=== PATIENT | female | born 1970 | race Two or more races ===

== ENCOUNTER 2019-06-23 18:08 | Emergency (ER) | payer OTHER ==
[~2019-06-23] VITALS: Ht 154.9 cm; Wt 68.9 kg
[2019-06-23 18:28] VITALS: BP 152/78
== END 2019-06-23 20:58 | disposition home or self-care (01) ==
LOC: ER 18:08
DX: J18.9 Pneumonia, unspecified organism (principal)

== ENCOUNTER 2019-07-19 15:38 | Inpatient (IN) | payer OTHER ==
[~2019-07-19] VITALS: Ht 154.9 cm; Wt 71.0 kg
--- NOTE | 2019-07-19 16:15 | NUR ---
PT R EC'D TO ER VIA EMS C/O SOB WAS SEEN IN THE ER 6 DAYS AGO FOR THESAME THING . SATS 100% RA RESP EVEN UNLABORED IV STARTED 22 LEFT WRIST LABS DRAWN SENT TO LAB AWAITING EVALUATION BY ER PROVIDER.
[2019-07-19 16:54] LABS: BASOPHILS # (AUTO) 0.1 /CMM (0.0-0.2); EOSINOPHILS % (AUTO) 1.9 % (0.0-6.0); HEMATOCRIT 24 % (33-45); HEMOGLOBIN 8.3 g/dL (11.5-14.8); MEAN CORPUSCULAR HGB CONC 34 g/dl (31.0-36.0); MEAN CORPUSCULAR VOLUME 87 fL (82-100); MONOCYTES % (AUTO) 7.2 % (2.0-12.0); NEUTROPHILS % (AUTO) 74.9 % (43.0-81.0); PLATELET COUNT (AUTO) 293 /CMM (150-450); RED BLOOD CELL COUNT(AUTO) 2.78 MIL/uL (4.0-5.2); WHITE BLOOD COUNT (AUTO) 13.3 K/uL (4.3-11.0)
--- NOTE | 2019-07-19 16:54 | NUR ---
PRT AMB TO BR VOIDED BACK TO BED MONTIORS APPLIED
--- NOTE | 2019-07-19 17:04 | NUR ---
PT TALKING ON THE PHONE VSSS
[2019-07-19 17:09] LABS: CALCIUM, SERUM 9.2 mg/dL (8.5-10.1); CARBON DIOXIDE 26 mmol/L (21-32); CHLORIDE 98 mmol/L (98-107); CREATININE 0.8 mg/dL (0.6-1.3); GLUCOSE 151 mg/dL (74-106); POTASSIUM 4.4 mmol/L (3.5-5.1); SODIUM SERUM 135 mmol/L (136-145); UREA NITROGEN, BLOOD 12 mg/dL (7-18)
--- NOTE | 2019-07-19 17:19 | NUR ---
EKG SHOWING A FLUTTER CONT TO MONITOR
[2019-07-19 17:22] LABS: B-TYPE NATRIURETIC PEPTIDE 236 PG/ML (0-125)
[2019-07-19] MEDS ORDERED: MULT-447 PO (17:23)
[2019-07-19] MEDS ORDERED: ALBU18HF2 IH (17:23)
[2019-07-19] MEDS ORDERED: ASCO500T9 PO (17:23)
[2019-07-19] MEDS ORDERED: PIPERACILLIN /TAZOBACTAM 3.375 G in IV D5W 50 ML IV ONE (18:00)
--- NOTE | 2019-07-19 18:29 | NUR ---
CALLED [facility] FOR COVID PRESENTATION. SOMEONE WILL CALL BACK WITHIN 1 HOUR.
--- NOTE | 2019-07-19 18:51 | NUR ---
pt given dinner tray pending zosyn from pharm waiting for a tech
[2019-07-19] MEDS ORDERED: DILTIAZEM HCL 25 MG IV IV ONE ×2 (19:00→22:30)
[2019-07-19] MEDS ORDERED: DILTIAZEM HCL 25 MG IV ONE (19:09)
--- NOTE | 2019-07-19 20:00 | NUR ---
end time for zosyn: 2030
[2019-07-19] MEDS ORDERED: Z GUARD REMEDY 2 OZ OINT TP PRN (20:30)
[2019-07-19] MEDS ORDERED: ACETAMINOPHEN 325 MG TABLET PO PRN (20:30)
[2019-07-19] MEDS ORDERED: MAGNESIUM HYDROXIDE 30 ML UDC PO PRN (20:30)
[2019-07-19] MEDS ORDERED: MAG HYDROX/AL HYDROX/SIMETH 30 ML UDC PO PRN (20:30)
[2019-07-19] MEDS ORDERED: ONDANSETRON HCL/PF 4 MG/2 ML VIAL IVP PRN (20:30)
--- NOTE | 2019-07-19 20:53 | NUR ---
REPORT GIVEN TO KOLE
--- NOTE | 2019-07-19 21:10 | NUR ---
pt was transferred to the floor under ACLS
[2019-07-19 21:15] VITALS: BP 124/72
--- NOTE | 2019-07-19 21:15 | NUR ---
TELE/RN NEW ADMISSION NOTES RECEIVED PATIENT IS A 48 YO FINNISH SPEAKING FEMALE, AMBULATORY, CONTINENT, AND ALERT, ORIENTED X3, ABLE TO VERBALIZE NEEDS, REPORTED SOB , SKIN WARM TO TOUCH, ON 2 LITER VIA NC SATURATING AT 95 %. DENIES PAIN. LUNGS SOUNDS ARE DIMINISHED WITH DX OF COMMUNITY ACQUIRED PNA, MULTIPLE HOSPITALIZATIONS. ON CONTACT ISOLATION FOR DROPLET, TO RULE OUT LOPES VIRUS 19. DENIES PAIN. SKIN INTACT AND WITH NO OPEN WOUND. LAST BM WAS A DAY AGO.PATIENT COOPERATIVE TO CARE. BELONGINGS CHECK. REFUSE VACCINE. TO MONITOR. ROOM ORIENTATION PROVIDED, WILL MONITOR. ON CARDIAC DIET. AND ANTIBIOTIC THERAPY. HOME MEDICATIONS REPORTED.
[2019-07-19 21:32] LABS: IRON, SERUM 160 ug/dl (50-175); TOTAL IRON BINDING CAPACITY 258 ug/dl (250-450)
--- NOTE | 2019-07-20 | NUR ---
TELE/RN NOTES CARDIZEM 5MG/1ML IVP ADMINISTERED FOR PATIENT WITH ELEVATED HEART RATE AND WITH AFLUTTER. RESULT IS NOW SINUS TACHY AT 113 AND NO LONGER AFLUTTER. PATIENT WAS MADE AWARE PER MD ORDER NOT TO GO TO THE BATHROOM IT CAUSE SOB DUE TO EXERTION. TO USE EITHER BED TRAN OR BED SIDE COMMODE INSTEAD.
[2019-07-20] MEDS ORDERED: ZOSYN IVPB 3.375 G in IV D5W 50ml IV ONE (02:00)
[2019-07-20] MEDS ORDERED: PIPERACILLIN /TAZOBACTAM 3.375 G VIAL IV ONE (02:43)
[2019-07-20 04:00] VITALS: BP 96/55
[2019-07-20 04:13] LABS: BASOPHILS # (AUTO) 0.1 /CMM (0.0-0.2); BASOPHILS % (AUTO) 0.6 % (0.0-2.0); EOSINOPHILS % (AUTO) 2.3 % (0.0-6.0); HEMATOCRIT 22 % (33-45); HEMOGLOBIN 7.2 g/dL (11.5-14.8); LYMPHOCYTES # (AUTO) 2.1 /CMM (0.8-4.8); LYMPHOCYTES % (AUTO) 17.9 % (20.0-44.0); MEAN CORPUSCULAR HGB CONC 33 g/dl (31.0-36.0); MEAN CORPUSCULAR VOLUME 88 fL (82-100); MONOCYTES # (AUTO) 0.9 /CMM (0.1-1.30); MONOCYTES % (AUTO) 7.3 % (2.0-12.0); NEUTROPHILS # (AUTO) 8.5 /CMM (1.8-8.9); NEUTROPHILS % (AUTO) 71.9 % (43.0-81.0); PLATELET COUNT (AUTO) 253 /CMM (150-450); RED BLOOD CELL COUNT(AUTO) 2.46 MIL/uL (4.0-5.2); WHITE BLOOD COUNT (AUTO) 11.8 K/uL (4.3-11.0)
[2019-07-20 04:21] LABS: CALCIUM, SERUM 8.8 mg/dL (8.5-10.1); CREATININE 0.8 mg/dL (0.6-1.3); PHOSPHORUS 4.6 mg/dL (2.5-4.9); POTASSIUM 4.1 mmol/L (3.5-5.1)
[2019-07-20 04:51] VITALS: BP 96/55
[2019-07-20 04:58] LABS: THYROID STIMULATING HORMONE 2.207 uIU/mL (0.358-3.74)
--- NOTE | 2019-07-20 06:31 | NUR ---
TELE/RN CLOSING NOTES PATIENT SLEPT FEW HOURS, ALERT, ORIENTED X3. MONITORED FOR SOB. ON OXYGEN VIA NC AT 3LITER. COOPERATIVE TO CARE. ABLE TO VERBALIZED NEEDS. ATTENDED TO ALL NEEDS. BED LOCKED, CALL LIGHTS WITHIN REACH. ON TELE WITH ST AT 113.WILL EBDORSE TO AM RN FOR HODAN.
--- NOTE | 2019-07-20 07:30 | NUR ---
RN OPENING NOTE Received pt in bed. Hob elevated. Pt is obtunded. On a trach and vent. No signs of distress. GT in place and feeding running. No residual. Checked placement. No signs of pain or discomfort. Patient appears relaxed. Esquivel catheter in place draining clear ghislaine urine. Safety measures reinforced. Bed on lowest and locked position. Repositioned patient. Tolerated well. Will continue to monitor.
--- NOTE | 2019-07-20 07:30 | NUR ---
Please disregard previous note
--- NOTE | 2019-07-20 07:30 | NUR ---
RN OPENING NOTE Received pt asleep in bed. Appears comfortable and relaxed. No signs of distress. Easily awaken when greeted. Pt has a non productive cough. No signs of pain when coughing. No shortness of breath at the moment. Pt has a L wrist peripheral line in place. Flushed with saline, patent. Pt has no c/o pain or discomfort. She expressed anxiety with isolation. Informed it risk and benefits of isolation. Pt family wants to visit. Informed that visitation is not allowed in all hospitals to prevent possible exposure. Pt understood. Call light is within reach. Reinforced safety measures. Bed on locked and lowest position. All needs met. Will cont to monitor.
[2019-07-20 08:00] VITALS: BP 92/55
[2019-07-20] MEDS: PANTOPRAZOLE 40 MG TABLET.DR PO SCH (08:08)
[2019-07-20] MEDS: ASCORBIC ACID 500 MG TABLET PO SCH (08:22)
[2019-07-20] MEDS: MULTIVIT W/MINERALS 1 TAB TABLET PO SCH (08:22)
[2019-07-20] MEDS: ENOXAPARIN SODIUM 40 MG/0.4 ML DISP.SYRIN SQ SCH ×2 (08:31→14:01)
[2019-07-20 12:00] VITALS: BP 112/63
[2019-07-20] MEDS: PIPERACILLIN /TAZOBACTAM 3.375 G in IV D5W 50 ML IV SCH ×3 (12:06→23:16)
[2019-07-20] MEDS ORDERED: FUROSEMIDE 20 MG/2 ML VIAL IV ONE (13:00)
[2019-07-20] MEDS ORDERED: SOD FERRIC GLUC 125 MG in IV NS 0.9% 100 ML IV SCH (14:00)
[2019-07-20 15:02] LABS: ABG BASE EXCESS 2.1 mmol/L; ABG OXYGEN SATURATION 96.1 % (92.0-98.5); ABG PH 7.533 (7.350-7.450); ABG PO2 88.1 mmHg (75.0-100.0); COHb 2.9 % (0.5-1.5); MetHb 0.6 % (0.0-1.5); O2Hb 92.7 % (94.0-97.0); SITE, ABG Right Radial
[2019-07-20 16:00] VITALS: BP 109/56
--- NOTE | 2019-07-20 16:21 | NUR ---
PT REFUSED DUPLEX VENOUS LOWER EXT BILATERAL EXAM. ATTENDING RN SPOKE TO PT AND PT REFUSED EXAM.
--- NOTE | 2019-07-20 16:24 | NUR ---
XIOMY RN NOTE PT REFUSED DUPLEX VENOUS LOWER EXT. EXPLAINED RISK AND BENEFITS OFFERED 3X. PT IS AWARE. PROCEDURE IS CANCELLED.
--- NOTE | 2019-07-20 19:02 | NUR ---
MS RN CLOSING NOTES PATIENT IN BED, AWAKE, WATCHING TV. PATIENT ON ROOM AIR BREATHING IS EVEN AND SYMMETRICAL WITH NO SOB PRESENT AT THIS TIME. LIGHT COUGH PRESENT. NO PAIN REPOSTED. L WRIST IV ACCESS GAUGE # [address], INTACT AND PATENT. SAFETY PRECAUTIONS IN PLACE; ISOLATION PRECAUTIONS IN PLACE, BED IN LOW POSITION AND LOCKED, RAILS UP X2, CALL LIGHT WITHIN REACH. WILL ENDORSE TO NURSERY TECHNICIAN NURSE.
--- NOTE | 2019-07-20 19:55 | NUR ---
RN NOTES RECEIVED PATIENT IN BED, AWAKE, RESTLESS, EXPRESSES IRRITABILITY BECAUSE ACCORDING TO HER, SHE'S BEEN REQUESTING TO TALK TO THE DOCTOR THE ENTIRE DAY REGARDING HER MEDICAL CONDITION, BUT SHE DID NOT SEE ANY DOCTOR. PATIENT IS UPSET, ABLE TO MAINTAIN NORMAL BREATHING PATTERN, O2 SAT 100% ON 2LPM VIA EVEN AND SYMMETRICAL WITH NO SOB PRESENT AT THIS TIME. LIGHT COUGH PRESENT.DENIES ANY PAIN AT THIS TIME, L WRIST IV ACCESS GAUGE # [address], INTACT AND PATENT. SAFETY PRECAUTIONS IN PLACE; ISOLATION PRECAUTIONS IN PLACE, BED IN LOW POSITION AND LOCKED, RAILS UP X2, CALL LIGHT WITHIN REACH. ALL NEEDS ANTICIPATED AND ATTENDED, WILL CONTINUE TO MONITOR ACCORDINGLY.
--- NOTE | 2019-07-20 21:18 | NUR ---
RN NOTES PATIENT REFUSED CALIX CATHETER INSERTION.
[2019-07-20] MEDS ORDERED: ATORVASTATIN 40 MG TABLET PO SCH (22:00)
[2019-07-21] VITALS (8 sets, daily range): BP systolic 95–130; BP diastolic 54–76
[2019-07-21] MEDS: PIPERACILLIN /TAZOBACTAM 3.375 G in IV D5W 50 ML IV SCH ×3 (05:01→17:00)
--- NOTE | 2019-07-21 06:27 | NUR ---
RN NOTES ALL NEEDS ATTENDED AND MET, ABLE TO REST AND SLEPT FROM 12 MIDNIGHT UNTIL 05:30 AM, HOWEVER, PATIENT CLAIMS THAT SHE WAS UNABLE TO SLEEP WELL BECAUSE IT IS NOT HER OWN BED, AND NOT COMFORTABLE SLEEPING. PATIENT IN BED, AWAKE, RESTING COMFORTABLY NO SIGNS OF DISTRESS. PATIENT IS STILL UPSET, REASSURED PATIENT THAT WILL REPORT AND ENDORSE TO AM NURSE THAT SHE WANTS TO TALK TO THE DOCTOR TODAY IN THE MORNING, AND FROM THERE, BASE ON CONVERSATION SHE WILL DECIDE IF SHE WANTS TO GO HOME TODAY. ABLE TO MAINTAIN NORMAL BREATHING PATTERN, O2 SAT 100% ON 2LPM VIA EVEN AND SYMMETRICAL WITH NO SOB PRESENT AT THIS TIME. LIGHT COUGH PRESENT.DENIES ANY PAIN AT THIS TIME, L WRIST IV ACCESS GAUGE # [address], INTACT AND PATENT. SAFETY PRECAUTIONS IN PLACE; ISOLATION PRECAUTIONS IN PLACE, BED IN LOW POSITION AND LOCKED, RAILS UP X2, CALL LIGHT WITHIN REACH. WILL ENDORSE TO AM NURSE FOR CONTINUITY OF CARE.
[2019-07-21 06:33] LABS: BASOPHILS % (AUTO) 0.3 % (0.0-2.0); EOSINOPHILS % (AUTO) 1.8 % (0.0-6.0); LYMPHOCYTES % (AUTO) 16.2 % (20.0-44.0); MEAN CORPUSCULAR HGB CONC 34 g/dl (31.0-36.0); MEAN CORPUSCULAR VOLUME 89 fL (82-100); MONOCYTES # (AUTO) 0.9 /CMM (0.1-1.30); MONOCYTES % (AUTO) 7.6 % (2.0-12.0); NEUTROPHILS % (AUTO) 74.1 % (43.0-81.0); PLATELET COUNT (AUTO) 194 /CMM (150-450); WHITE BLOOD COUNT (AUTO) 12.2 K/uL (4.3-11.0)
[2019-07-21 06:39] LABS: RED BLOOD CELL COUNT(AUTO) 1.96 MIL/uL (4.0-5.2)
[2019-07-21 06:42] LABS: HEMATOCRIT 18 % (33-45)
--- NOTE | 2019-07-21 06:46 | NUR ---
RN NOTES RECEIVED CRITICAL LAB VALUES HEMOGLOBIN 6.0 HEMACTOCRIT 18. INFORMED FAMILY SERVICE AIDE ANITA LEE, AWAITING FOR NEW ORDERS.
[2019-07-21 07:07] LABS: ALBUMIN 2.6 g/dL (3.4-5.0); BILIRUBIN,TOTAL 2.8 mg/dL (0.2-1.0); CALCIUM, SERUM 8.7 mg/dL (8.5-10.1); CREATININE 0.8 mg/dL (0.6-1.3); MAGNESIUM 2.2 mg/dL (1.8-2.4); PHOSPHORUS 5.1 mg/dL (2.5-4.9); TOTAL PROTEIN, SERUM 6.5 g/dL (6.4-8.2)
[2019-07-21 07:21] LABS: BAND % (MANUAL) 4 % (0.0-5.0); LYMPHOCYTES % (MANUAL) 11 % (16-48); METAMYELOCYTES % 2 % (0-0); MONOCYTES % (MANUAL) 10 % (0-11.0); MYELOCYTES % 1 % (0-0); NEUTROPHILS % (MANUAL) 72 (42-76)
--- NOTE | 2019-07-21 07:30 | NUR ---
FILLER MIXER NOTES PT IN BED, AWAKE, ALERT AND ORIENTED, DENIES PAIN, COMPLAINS OF SOB WHEN WALKING TO THE BATHROOM, CALL LIGHT WITHIN REACH, COMPLAINS OF COUGH, ON O2 AT 2LPM VIA NASAL CANULA, NO SOB WHILE IN BED, ISOLATION PRECAIUTIONS OBSERVED.
[2019-07-21] MEDS: PANTOPRAZOLE 40 MG TABLET.DR PO SCH (09:05)
[2019-07-21] MEDS: ASCORBIC ACID 500 MG TABLET PO SCH (09:05)
[2019-07-21] MEDS: MULTIVIT W/MINERALS 1 TAB TABLET PO SCH (09:06)
--- NOTE | 2019-07-21 12:04 | NUR ---
RN MS NOTES PT IN BED, DR. HODGES ORDERED 1 UNIT PRBC, PT INFORMED, CONSENT SIGNED, MAINTAINED ON ISOLATION PRECAUTIONS, NEEDS ATTENDED, DUE MEDS GIVEN ORDERED.
[2019-07-21] MEDS: GUAIFENESIN/D-METHORPHAN HB 5 ML UDC PO PRN ×2 (13:53→20:48)
[2019-07-21 18:13] LABS: APPEARANCE,URINE CLOUDY (CLEAR); BILIRUBIN,URINE NEGATIVE (NEGATIVE); BLOOD, URINE TRACE-INTA Ery/uL (NEGATIVE); COLOR,URINE YELLOW (YELLOW); KETONES,URINE NEGATIVE (NEGATIVE); LEUKOCYTE ESTERASE ,URINE NEGATIVE (NEGATIVE); NITRITE, URINE NEGATIVE (NEGATIVE); PH,URINE 5.5 (5.0-8.0); PROTEIN,URINE NEGATIVE (NEGATIVE); UGLUCOSE NEGATIVE (NEGATIVE); UROBILINOGEN,URINE 0.2 EU/dL (0.2)
[2019-07-21 18:15] LABS: BACTERIA,URINE None seen /HPF (None Seen); RBC,URINE 0-2 /HPF (0-2); SQUAMOUS EPITHELIAL CELL,UR Few /HPF (None Seen); URINE AMORPHOUS URATE Moderate /HPF (None Seen); WBC,URINE 0-2 /HPF (0-3)
--- NOTE | 2019-07-21 18:19 | NUR ---
PT REFUSED AGAIN DUPLEX VENOUS LOWER EXT BI EXAM. JOSÉ ANTONIO ROSS WAS ADVISED.
--- NOTE | 2019-07-21 18:33 | NUR ---
CARPENTRY PROFESSIONAL NOTES PT IN BED, RESTING, ALERT AND ORIENTED, S/P I UNIT PRBC TRANSFUSION, TOLERATED WELL, VITALS STABLE, ISOLATION PRECAUTIONS OBSERVED, STILL NOTED WITH DRY COUGH, SEEN AND EXAMINED BY DR. HODGES, PLAN OF CARE DISCUSSED WITH PT, VERBALIZED UNDERSTANDING, ALL NEEDS ATTENDED.
--- NOTE | 2019-07-21 19:45 | NUR ---
COMPUTER AIDE NOTES, PATIENT IN BED, AWAKE ALERT AND ORIENTED, BREATHING EVEN AND UNLABORED, NO SOB/ACUTE DISTRESS NOTED AT THIS TIME, ISOLATION PRECAUTIONS OBSERVED, ALL SAFETY MEASURES IN PLACED, WILL CONTINUE TO MONITOR CLOSELY.
[2019-07-21] MEDS: ALPRAZOLAM 0.25 MG TABLET PO PRN (20:48)
[2019-07-22] VITALS (17 sets, daily range): BP systolic 88–117; BP diastolic 52–79
[2019-07-22] MEDS: PIPERACILLIN /TAZOBACTAM 3.375 G in IV D5W 50 ML IV SCH ×5 (00:37→23:59)
[2019-07-22 06:14] LABS: EOSINOPHILS % (AUTO) 8.8 % (0.0-6.0); LYMPHOCYTES # (AUTO) 3.6 /CMM (0.8-4.8); LYMPHOCYTES % (AUTO) 32.5 % (20.0-44.0); MEAN CORPUSCULAR HGB CONC 35 g/dl (31.0-36.0); MEAN CORPUSCULAR VOLUME 90 fL (82-100); MONOCYTES # (AUTO) 2.6 /CMM (0.1-1.30); MONOCYTES % (AUTO) 23.8 % (2.0-12.0); NEUTROPHILS # (AUTO) 3.8 /CMM (1.8-8.9); NEUTROPHILS % (AUTO) 34.9 % (43.0-81.0); PLATELET COUNT (AUTO) 156 /CMM (150-450); WHITE BLOOD COUNT (AUTO) 10.9 K/uL (4.3-11.0)
[2019-07-22 06:23] LABS: HEMATOCRIT 20 % (33-45); HEMOGLOBIN 6.9 g/dL (11.5-14.8)
--- NOTE | 2019-07-22 06:30 | NUR ---
RN NOTES, RECEIVED CRITICAL RESULT FROM LAB FOR HEMIGLOBIN 6.9, HEMATOCRIT 20, CALLED DR ORTIZ TEA BAG MACHINE TENDER, SPRING TIER PAGED , AWAITING FOR CALL.
[2019-07-22 06:45] LABS: BAND % (MANUAL) 6 % (0.0-5.0); LYMPHOCYTES % (MANUAL) 16 % (16-48); METAMYELOCYTES % 2 % (0-0); MONOCYTES % (MANUAL) 5 % (0-11.0); MYELOCYTES % 1 % (0-0); NEUTROPHILS % (MANUAL) 70 (42-76)
[2019-07-22 07:06] LABS: HIV SCRN 4G wRFX Non Reactive (Non Reactive)
--- NOTE | 2019-07-22 07:10 | NUR ---
BACK TUFTER NOTES, PATIENT IN BED, AWAKE ALERT AND ORIENTED, BREATHING EVEN AND UNLABORED, NO SOB/ACUTE DISTRESS NOTED AT THIS TIME, BUT WHENEVER SHE USES RESTROOM GET SOB WITH EXACERBATION, CALLED MD BROOM WORKER DIANA TO REPORTED RESULTS THIS MORNING FOR H&H 6.01/16, STILL AWAITING FOR CALL BACK, ENDORSED TO JOSÉ ANTONIO MANNING FOR CONTINUATION OF CARE AND F/U WITH MD, ISOLATION PRECAUTIONS OBSERVED, ALL SAFETY MEASURES IN PLACED.
[2019-07-22 07:20] LABS: ALANINE AMINOTRANSFERASE 71 U/L (12-78); ALBUMIN 2.7 g/dL (3.4-5.0); ALKALINE PHOSPHATASE 221 U/L (46-116); ASPARTATE AMINOTRANSFERASE 156 U/L (15-37); BILIRUBIN,DIRECT 1.4 mg/dL (0.0-0.2); BILIRUBIN,TOTAL 4.9 mg/dL (0.2-1.0); CALCIUM, SERUM 8.8 mg/dL (8.5-10.1); CARBON DIOXIDE 25 mmol/L (21-32); CHLORIDE 97 mmol/L (98-107); CREATININE 0.7 mg/dL (0.6-1.3); GLUCOSE 159 mg/dL (74-106); MAGNESIUM 2.3 mg/dL (1.8-2.4); PHOSPHORUS 3.9 mg/dL (2.5-4.9); POTASSIUM 3.9 mmol/L (3.5-5.1); SODIUM SERUM 135 mmol/L (136-145); TOTAL PROTEIN, SERUM 6.8 g/dL (6.4-8.2); UREA NITROGEN, BLOOD 19 mg/dL (7-18)
--- NOTE | 2019-07-22 07:45 | NUR ---
RN OPENING NOTE: RECEIVED PATIENT IN BED THIS MORNING. PATIENT IS ALERT X3, RESPONDS APPROPRIATELY. NO SIGNS OF ACUTE RESPIRATORY DISTRESS NOTED. PATIENT C/O SOB UPON AMBULATION. NO SIGNS OF ACUTE DISTRESS NOTED. PATIENT IS ON ISOLATION PRECAUTIONS WITH PENDING RESULTS, WILL CONTINUE TO FOLLOW UP. NO C/O PAIN. SAFETY MEASURES IMPLEMENTED, BED IN LOWEST POSITION, LOCKED, SIDE RAILS UP X2, CALL LIGHT WITHIN REACH. WILL CONTINUE TO MONITOR PATIENT FOR CHANGES AND CONTACT MD ONCE LIST OF MD IS OUT PERTAINING HGB LEVELS.
[2019-07-22] MEDS: ENOXAPARIN SODIUM 40 MG/0.4 ML DISP.SYRIN SQ SCH (08:09)
[2019-07-22] MEDS: PANTOPRAZOLE 40 MG TABLET.DR PO SCH (08:09)
[2019-07-22] MEDS: MULTIVIT W/MINERALS 1 TAB TABLET PO SCH ×2 (08:09→08:29)
[2019-07-22] MEDS: ASCORBIC ACID 500 MG TABLET PO SCH ×2 (08:09→08:30)
--- NOTE | 2019-07-22 10:00 | NUR ---
DR LÓPEZ AWARE OF HGB 6.9 WITH NEW ORDERS FOR 2 UNITS PRBC
[2019-07-22] MEDS ORDERED: IV NS 0.9% 250 ML IV ONE (10:06)
[2019-07-22] MEDS ORDERED: IOHEXOL-300 100 ML VIAL IV ONE (10:06)
[2019-07-22] MEDS ORDERED: CT SWABBABLE VALVE TRANS SET 1 EA INFUS.SET MC ONE (10:06)
--- NOTE | 2019-07-22 12:25 | NUR ---
DR LÓPEZ AWARE OF THE CT RESULTS FROM 07/22/[address] MOLINA
--- NOTE | 2019-07-22 14:34 | NUR ---
1 UNIT OF PRBC IS ALREADY TRANSFUSING. PATIENT HAS NO C/O ADVERSE EFFECTS. VSS. WILL CONTINUE TO MONITOR PATIENT.
--- NOTE | 2019-07-22 14:35 | NUR ---
ID SAW PATIENT, REQUESTING FOR SPUTUM CULTURE.
--- NOTE | 2019-07-22 17:44 | NUR ---
PER TIFFANI GAMEZ TO GIVE LATE DOSE OF ZOSYN ONCE 2ND UNIT OF BLOOD TRANSFUSION IS COMPLETE. Addendum: 07/22/19 at 1804 by LUAN FRANCIS RN WILL ENDORSE TO DOUGH CUTTING MACHINE OPERATOR RN TO ADMINISTER ZOSYN
--- NOTE | 2019-07-22 17:45 | NUR ---
SECOND UNIT OF PRBC ALREADY RUNNING. PATIENT HAS NO C/O ADVERSE AFFECTS. WILL CONTINUE TO MONITOR AND CHECK VS.
--- NOTE | 2019-07-22 18:06 | NUR ---
RE-CHECK H&H 1 HOUR POST TRANSFUSION, WILL ENDORSE TO ONCOMING SHIFT RN.
--- NOTE | 2019-07-22 19:00 | NUR ---
BUZZSAW OPERATOR OPENING NOTE: RECEIVED PATIENT IN BED AWAKE. PATIENT IS ALERT X3, RESPONDS APPROPRIATELY. NO SIGNS OF ACUTE RESPIRATORY DISTRESS NOTED. PATIENT C/O SOB UPON AMBULATION. NO SIGNS OF ACUTE DISTRESS NOTED. PATIENT IS ON ISOLATION PRECAUTIONS WITH PENDING RESULTS, WILL CONTINUE TO FOLLOW UP. NO C/O PAIN. WITH ONGOING BLOOD TRANSFUSION OF PRBC ON L WRIST G20 INFUSING WELL NO SIGN AND SYMPTOMS OF INFILTRATION, NO SIGN AND SYMPTOMS OF TRANSFUSION REACTION, SAFETY MEASURES IMPLEMENTED, BED IN LOWEST POSITION, LOCKED, SIDE RAILS UP X2, CALL LIGHT WITHIN REACH. WILL CONTINUE TO MONITOR PATIENT PT NOTIFY THE NURSE ABOUT THE MINIMAL BLEEDING OF LEFT NARES WHEN SHE SNEEZE, ASSESSMENT DONE NO ACTIVE OR PROFUSE BLEEDING NOTED WILL CONT TO MONITOR
--- NOTE | 2019-07-22 19:00 | NUR ---
BUSINESS SYSTEMS DEVELOPER NOTES ZOSYN NOT YET GIVEN D/T PT STILL HAVING BLOOD TRANSFUSION MD AWARE AND AGREED TO GIVE ZOSYN POST BLOOD TRANSFUSION
--- NOTE | 2019-07-22 19:45 | NUR ---
CHUTE BUILDER NOTES BLOOD TRANSFUSION COMPLETED WITH LATEST VITAL SIGNS IOF 108/57 HR 112 RR 18 TEMP 97.9 O2 SAT 94% ON 4L O2 VIA NC, PT IS ALERT AWAKE OX 4 NO TRANSFUSION REACTION NOTED WILL CONT. TO MONITOR THE PT
--- NOTE | 2019-07-22 20:26 | NUR ---
RN CLOSING NOTE: PATIENT REMAINS IN BED. NO SIGNS OF ACUTE RESPIRATORY DISTRESS NOTED. SIGNS OF ACUTE DISTRESS NOTED. PATIENT IS ON ISOLATION PRECAUTIONS WITH PENDING RESULTS. SAFETY MEASURES IMPLEMENTED, BED IN LOWEST POSITION, LOCKED, SIDE RAILS UP X2, CALL LIGHT WITHIN REACH. ENDORSED TO ONCOMING SHIFT RN FOR CONTINUITY OF CARE, CONTINUE MONITORING TRANSFUSION, DO A LATE INFUSION FOR IV ABX.
[2019-07-22 21:04] LABS: HEMOGLOBIN 10.6 g/dL (11.5-14.8)
[2019-07-22] MEDS: ALPRAZOLAM 0.25 MG TABLET PO PRN (22:10)
[2019-07-23] VITALS (7 sets, daily range): BP systolic 78–110; BP diastolic 50–65
[2019-07-23] MEDS: PIPERACILLIN /TAZOBACTAM 3.375 G in IV D5W 50 ML IV SCH ×4 (05:44→23:37)
[2019-07-23 06:06] LABS: IMMUNOGLOBULIN A, SERUM 381 mg/dL (87-352); IMMUNOGLOBULIN G, SERUM 1096 mg/dL (700-1600); IMMUNOGLOBULIN M, SERUM 75 mg/dL (26-217)
[2019-07-23 06:46] LABS: BASOPHILS # (AUTO) 0.1 /CMM (0.0-0.2); BASOPHILS % (AUTO) 0.7 % (0.0-2.0); EOSINOPHILS % (AUTO) 1.2 % (0.0-6.0); HEMATOCRIT 28 % (33-45); HEMOGLOBIN 9.8 g/dL (11.5-14.8); LYMPHOCYTES # (AUTO) 3.2 /CMM (0.8-4.8); LYMPHOCYTES % (AUTO) 21.1 % (20.0-44.0); MEAN CORPUSCULAR HGB CONC 35 g/dl (31.0-36.0); MEAN CORPUSCULAR VOLUME 89 fL (82-100); MONOCYTES # (AUTO) 1.4 /CMM (0.1-1.30); MONOCYTES % (AUTO) 9.2 % (2.0-12.0); NEUTROPHILS # (AUTO) 10.4 /CMM (1.8-8.9); NEUTROPHILS % (AUTO) 67.8 % (43.0-81.0); PLATELET COUNT (AUTO) 150 /CMM (150-450); RED BLOOD CELL COUNT(AUTO) 3.12 MIL/uL (4.0-5.2); WHITE BLOOD COUNT (AUTO) 15.4 K/uL (4.3-11.0)
[2019-07-23 06:55] LABS: CALCIUM, SERUM 8.6 mg/dL (8.5-10.1); CREATININE 0.7 mg/dL (0.6-1.3); POTASSIUM 3.9 mmol/L (3.5-5.1)
--- NOTE | 2019-07-23 07:08 | NUR ---
MECHANIC GENERAL OPERATIONAL TEST CLOSING NOTE: PATIENT SLEEPING ON BED . NO SIGNS OF ACUTE RESPIRATORY DISTRESS NOTED. NO SIGNIFICANT CHANGES ON CONDITION NOTED. PATIENT IS ON ISOLATION PRECAUTIONS WITH PENDING RESULTS. ON TELE MONITOR WITH CURRENT READING ST 120'S.SAFETY MEASURES IMPLEMENTED, BED IN LOWEST POSITION, LOCKED, SIDE RAILS UP X2, CALL LIGHT WITHIN REACH. ENDORSED TO ONCOMING SHIFT RN FOR CONTINUITY OF CARE, MINIMAL BLEEDING OF L NARES STILL NOTED AM NURSE MADE AWARE TO INFORMED MD,
[2019-07-23] MEDS: PANTOPRAZOLE 40 MG TABLET.DR PO SCH (07:30)
--- NOTE | 2019-07-23 07:50 | NUR ---
RN OPENING NOTE: RECEIVED PATIENT IN BED THIS MORNING. PATIENT IS ALERT X3, RESPONDS APPROPRIATELY. NO SIGNS OF ACUTE RESPIRATORY DISTRESS NOTED. PATIENT C/O SOB UPON AMBULATION. NO SIGNS OF ACUTE DISTRESS NOTED. PATIENT IS ON ISOLATION PRECAUTIONS WITH PENDING RESULTS, WILL CONTINUE TO FOLLOW UP. NO C/O PAIN. SAFETY MEASURES IMPLEMENTED, BED IN LOWEST POSITION, LOCKED, SIDE RAILS UP X2, CALL LIGHT WITHIN REACH. WILL CONTINUE TO MONITOR PATIENT.
[2019-07-23] MEDS: MULTIVIT W/MINERALS 1 TAB TABLET PO SCH (08:23)
[2019-07-23] MEDS: ASCORBIC ACID 500 MG TABLET PO SCH (08:23)
[2019-07-23] MEDS: ENOXAPARIN SODIUM 40 MG/0.4 ML DISP.SYRIN SQ SCH (08:25)
[2019-07-23] MEDS ORDERED: ZOLPIDEM TARTRATE 5 MG TABLET PO PRN (08:30)
--- NOTE | 2019-07-23 09:00 | NUR ---
INFORMED DR LÓPEZ OF PATIENT'S LOW BP, MANUAL TAKEN, REMAINS LOW. NNO PERTAINING BP AT THIS TIME.
[2019-07-23 11:12] LABS: *SPE A/G RATIO 0.8 (0.7-1.7); *SPE ALPHA-1-GLOBULIN 0.6 g/dL (0.0-0.4); *SPE ALPHA-2-GLOBULIN 0.6 g/dL (0.4-1.0); *SPE BETA GLOBULIN 1.4 g/dL (0.7-1.3); *SPE GLOBULIN, TOTAL 3.6 g/dL (2.2-3.9); *SPE M-SPIKE Not Observed g/dL (Not Observed)
--- NOTE | 2019-07-23 17:19 | NUR ---
INFORMED DR LÓPEZ OF PATIENT'S CRITICAL RESULTS OF PROCALCITONIN 2.66 AND LACTIC ACID 2.6/ DECREASED APPETITE. ORDERED NS @ 75 CC/HR AND MEGACE 400MG DAILY.
[2019-07-23] MEDS ORDERED: IV NS 0.9% 1,000 ML IV PRN (17:30)
[2019-07-23] MEDS ORDERED: MEGESTROL ACETATE SUSP 400 MG/10 ML UDC PO SCH (17:30)
[2019-07-23] MEDS ORDERED: IV NS 0.9% 1,000 ML BAG IV PRN (17:30)
--- NOTE | 2019-07-23 19:12 | NUR ---
RN CLOSING NOTE: PATIENT REMAINS IN BED. NO SIGNS OF ACUTE DISTRESS NOTED. PATIENT IS ON ISOLATION PRECAUTIONS WITH PENDING RESULTS. SAFETY MEASURES IMPLEMENTED, BED IN LOWEST POSITION, LOCKED, SIDE RAILS UP X2, CALL LIGHT WITHIN REACH. ENDORSED TO ONCOMING SHIFT FOR PATIENT TO BE NPO AFTER MIDNIGHT FOR EGD TOMORROW PER DR LÓPEZ.
--- NOTE | 2019-07-23 20:00 | NUR ---
RN OPENING NOTE: RECEIVED PATIENT IN BED ALERT X3.ON NC at [address] -130 ON THE MONITOR .NO SIGNS OF ACUTE RESPIRATORY DISTRESS NOTED. PATIENT C/O SOB UPON AMBULATION. NO C/O PAIN. SAFETY MEASURES IMPLEMENTED, BED IN LOWEST POSITION, LOCKED, SIDE RAILS UP X2, CALL LIGHT WITHIN REACH. V/S STABLE AFEBRILE SATING 100% WILL CONTINUE TO MONITOR PT.
--- NOTE | 2019-07-23 21:00 | NUR ---
RN NOTES PT ON IVF OF NS AT 75CC/HR INFUSING WELL .WITH IVF OF LEFT FOREARM G#20 INTACT AND PATENT , DUE MEDS GIVEN ORDERED KEPT PT CLEAN DRY AND COMFORTABLE ,PTS INFORMED THAT SHE GONNA HAVE PROCEDURE JULIA MORNING FOR EGD AND SHE SIGN THE CONSENT , INSTRUCTED TO BE NPO POST MIDNIGHT PTS VERBALIZE UNDERSTANDING.
--- NOTE | 2019-07-23 23:37 | NUR ---
RN NOTES DUE IV ANTIBIOTIC GIVEN ORDERED,NO ASE NOTED WILL CONTINUE TO MONITOR PTS.
[2019-07-24] VITALS: BP 109/58
[2019-07-24 02:04] LABS: APPEARANCE,URINE TURBID (CLEAR); BILIRUBIN,URINE LARGE (NEGATIVE); BLOOD, URINE LARGE Ery/uL (NEGATIVE); COLOR,URINE BROWN (YELLOW); KETONES,URINE TRACE (NEGATIVE); LEUKOCYTE ESTERASE ,URINE SMALL (NEGATIVE); NITRITE, URINE POSITIVE (NEGATIVE); PH,URINE 6.5 (5.0-8.0); PROTEIN,URINE >=300 mg/dl (NEGATIVE); UGLUCOSE NEGATIVE (NEGATIVE)
--- NOTE | 2019-07-24 02:08 | NUR ---
0208 NOTED PATIENT BRADYCARDIC ON THE MONITOR HR IN THE 40S- 30S, RAN TO PATIENT 'S ROOM AND FOUND PATIENT SEMI SITTING ON EDGE OF BED UNRESPONSIVE, UNABLE TO PALPATE PULSE. CODE YUNG CALLED. CPR INITIATED.
--- NOTE | 2019-07-24 02:08 | NUR ---
RN NOTES PTS FULL CODE , NO PULSE , CPR CONTINUE ,0217HRS PTS ASYSTOLE ON THE MONITOR DR REILLY AT BEDSIDE ,EPI GIVEN ORDER , BS -284 MMOL /DL, AT 0221 HRS PT AFIB 100-140,BP 124/64 O2 SAT 84% ORAL INTUBATION AT [address] REILLY AT 0229 HRS PTS TRANSFER TO ICU VIA ACLS , REPORT GIVEN TO CHARGE NURSE LEATHA .
--- NOTE | 2019-07-24 02:30 | NUR ---
ICU/RN-PT. TRANSFERRED TO 258 ICU BY BED PPER ACLS PROTOCOL, S/P CODE BLUE D/T CP ARREST. PT. UNRESPONSIVE, W/ ETT IN PLACE W/ CONTINUOUS BAGGING BY RT. . AND HOOKED UP TO CASE MANAGEMENT ASSISTANT. W/ HR-33 SB. BP-56/43.
[2019-07-24 02:33] VITALS: BP 56/43
--- NOTE | 2019-07-24 02:33 | NUR ---
ICU/RN- PT. NOTED HR-33 ON MONITOR, PULSELESS/PEA, ACL INITIATED PER ACLS PROTOCOL. CODE BLUE WAS CALLED.
--- NOTE | 2019-07-24 02:35 | NUR ---
ICU/RN- CONTINUE ACLS DR. REILLY IN ATTENDANCE W/ CODE TEAM. SEE CODE BLUE DOCUMENTATION FOR DETAILS.
[2019-07-24 02:40] VITALS: BP_SYST 0
--- NOTE | 2019-07-24 02:45 | NUR ---
RN NOTES CALLED AND SPOKE TO FAMILY DAUGHTER BENITO , RELAYED PTS CONDITION .
[2019-07-24 02:47] VITALS: BP 0/0
[2019-07-24 02:47] LABS: RBC,URINE 0-2 /HPF (0-2); WBC,URINE 0-2 /HPF (0-3)
--- NOTE | 2019-07-24 02:47 | NUR ---
ICU/RN- ALL ACLS EFFORTS EXHAUSTED AND UNSUCCESSFUL, PT REMAINS PEA. PT. PRONOUNCED BY DR. REILLY.
[2019-07-24 02:48] LABS: BACTERIA,URINE Moderate /HPF (None Seen); SQUAMOUS EPITHELIAL CELL,UR Few /HPF (None Seen)
--- NOTE | 2019-07-24 03:00 | NUR ---
ICU/RN- POST MORTEM CARE DONE.
--- NOTE | 2019-07-24 03:30 | NUR ---
ICU/RN- FAMILY HERE TO SEE PT. W/ MULTIPLE QUESTIONS AND CONCERNS.PRIMARY RN FROM TELE 1 JESSICA SPOKE TO FAMILY W/ TD TIMBER SPRINKLER JEANMARIE, ABLE TO ANSWER ALL CONCERNS AND QUESTIONS. VERBALIZED UNDERSTANDING.
--- NOTE | 2019-07-24 04:40 | NUR ---
ICU/RN- BODY TAKEN TO MCKAYLA HALL PER PROTOCOL.
[2019-07-24] MEDS ORDERED: SODIUM BICARBONATE SYR 50 MEQ/50 ML DISP.SYRIN IV ONE (04:44)
[2019-07-24] MEDS ORDERED: EPINEPHRINE (1:1000) 1 MG/ML AMPUL SUBCUT ONE (04:44)
[2019-07-24] MEDS ORDERED: CALCIUM CHLORIDE 1,000 MG/10 ML DISP.SYRIN IV ONE (04:44)
[2019-07-24] MEDS ORDERED: FEE PK DOSING 1 MIN EA MC ONE (04:44)
[2019-07-24] MEDS ORDERED: EPINEPHRINE (1:10,000) SYRINGE 1 MG/10 ML DISP.SYRIN IVP ONE (04:44)
== END 2019-07-24 04:45 | disposition expired | DRG 133 ==
LOC: ER 15:43 → TELE1 20:20 → ICU 07-24 02:36
PROVIDERS: ADMIT Registered Nurse; ATTEND Family Medicine
PROC: 30233N1 Transfusion of Nonautologous Red Blood Cells into Peripheral Vein, Percutaneous Approach (ICD-10-PCS; principal; 2019-07-21)
PROC: 5A2204Z Restoration of Cardiac Rhythm, Single (ICD-10-PCS; 2019-07-24)
PROC: 0BH17EZ Insertion of Endotracheal Airway into Trachea, Via Natural or Artificial Opening (ICD-10-PCS; 2019-07-24)
PROC: 5A1935Z Respiratory Ventilation, Less than 24 Consecutive Hours (ICD-10-PCS; 2019-07-24)
DX: J96.01 Acute respiratory failure with hypoxia (principal); I50.33 Acute on chronic diastolic (congestive) heart failure; J15.9 Unspecified bacterial pneumonia; C78.7 Secondary malignant neoplasm of liver and intrahepatic bile duct; C77.2 Secondary and unspecified malignant neoplasm of intra-abdominal lymph nodes; C79.51 Secondary malignant neoplasm of bone; I48.91 Unspecified atrial fibrillation; I48.92 Unspecified atrial flutter; I27.20 Pulmonary hypertension, unspecified; E87.1 Hypo-osmolality and hyponatremia; R13.10 Dysphagia, unspecified; R18.8 Other ascites; E66.9 Obesity, unspecified; Z86.19 Personal history of other infectious and parasitic diseases; I70.0 Atherosclerosis of aorta; E78.5 Hyperlipidemia, unspecified; K59.00 Constipation, unspecified; Z87.01 Personal history of pneumonia (recurrent); Z87.11 Personal history of peptic ulcer disease; Z79.51 Long term (current) use of inhaled steroids; Z68.29 Body mass index [BMI] 29.0-29.9, adult; R73.9 Hyperglycemia, unspecified; D63.8 Anemia in other chronic diseases classified elsewhere
CPT/HCPCS: 36415; 36600; 70220-TC; 71045-TC; 71270-TC; 74178; 80048-TC; 80053-TC; 80061-TC; 80074; 80305; 81000-TC; 82247-TC; 82248-TC; 82728-TC; 82784; 82803-TC; 82962-TC; 83010; 83540-TC; 83605-TC; 83615-TC; 83735-TC; 83880; 84100-TC; 84155; 84165; 84443-TC; 84484-TC; 85025-TC; 85027-TC; 85045-TC; 85730-TC; 86334; 86850-TC; 86880-TC; 86921-TC; 87040-TC; 87070-TC; 87081-TC; 87086-TC; 87899; 93307-TC; G0378; J0171; J1650; J1940; J2543; J2916; J3490; J7030; J7050; J7060; P9016-BL; Q9967; U0002